=== PATIENT | male | born 1975 | race Caucasian/White ===

== ENCOUNTER → 2017-11-26 | Outpatient (CLI) | payer OTHER ==
[~2017-11-26] MED LIST: ACETAMINOPHEN-1 EAC1 PO; AMLODIPINE BESY10 MG PO; CLONAZEPAM 0.50.5 M1 PO; GABAPENTIN 100100 MG PO; HYDROCHLOROTH12.5 M1 PO; LABETALOL HCL100 MG PO; LIPITOR10 MG PO; METFORMIN HCL500 MG PO; PRINIVIL10 MG PO; SEROQUEL200 MG PO; TRAMADOL 50 MG50 MG PO; VENLAFAXINE HCL75 M2 PO; ZOFRAN ODT4 MG PO
[2017-11-26 10:52] LABS: HEMATOCRIT 39.2 % (42.0-52.0); HEMOGLOBIN 13.2 gm/dL (14.0-18.0); MCH 31.1 pg (26.0-34.0); MCHC 33.7 g/dL (28.0-37.0); MCV 92.4 fL (80.0-100.0); MPV 6.7 fl. (7.2-11.1); NUCLEATED RBCS 0 /100WBC; PLATELET COUNT* 444 thou/uL (150-400); RBC 4.24 mil/uL (4.50-6.00); RDW-CV 12.9 % (10.5-14.5); WBC 10.9 thou/uL (4.0-11.0)
[2017-11-26 11:25] LABS: % SATURATION 38 % (20-39); IRON 140 ug/dL (50-175)
[2017-11-26 12:10] LABS: ABSOLUTE EOSINOPHILS 0.2 thou/uL (0.0-0.7); ABSOLUTE LYMPHOCYTES 3.5 thou/uL (0.8-5.3); ABSOLUTE MONOCYTES 1.2 thou/uL (0.0-1.2); METAMYELOCYTES 1 %
[2017-11-26 12:11] LABS: LARGE PLATELETS RARE; PLATELET ESTIMATE INCREASED
[2017-11-26 12:12] LABS: MICROCYTES Occasional
[2017-11-26 12:16] LABS: ESR (SEDRATE) 2 mm/hr (0-15)
[2017-11-26 21:10] LABS: HEMOGLOBIN 12.9 g/dL (13.0-17.7)
[2017-11-26 21:16] LABS: ALBUMIN 4.3 g/dL (3.4-5.0); CALCIUM 9.4 mg/dL (8.5-10.1); CREATININE 0.7 mg/dL (0.6-1.3); POTASSIUM 4.1 mmol/L (3.5-5.1); TOTAL BILIRUBIN 0.6 mg/dL (<0.1-1.0); TOTAL PROTEIN 7.3 g/dL (6.4-8.2)
--- NOTE | 2017-12-06 14:19 | HEMONC ---
[address] [address] HEMATOLOGY ONCOLOGY NOTE Name: MIA ROWE Room: [facility]#: [id number] Admission: 11/26/17 Attend Phys: Becky Johnson MD Discharge: Date of : 77 Report #: [id number] THIS REPORT FOR: //name// CC: Becky Oreilly HEMATOLOGY-ONCOLOGY CLINIC NOTE REFERRING PHYSICIAN: Nuria Oreilly NP. REASON FOR CONSULTATION: Leukocytosis and thrombocythemia. SUBJECTIVE: A 42-year-old male with multiple medical conditions, who has been evaluated because of leukocytosis. He had blood work done on 08/15/2017, which showed WBC 12.3, hemoglobin 13.4. In addition to that, platelet count was 485,000. I reviewed his previous CBC back in 07/2017, which showed persistent elevation of his platelet count around 400,000. The patient reported symptoms of lightheadedness discomfort and he has been trying to lose weight by cutting down his sugar. The patient was told he had a fatty liver back when he was 19 years old. The patient denies any recent surgery or frequent infections. REVIEW OF SYSTEMS: All systems reviewed. It was negative, except the above. PAST MEDICAL HISTORY: Dyslipidemia, diabetes mellitus, sleep apnea, GERD, arthritis and fatty liver. MEDICATION ALLERGIES: No known allergies. MEDICATIONS: Atorvastatin 10 mg p.o. daily, gabapentin 100 mg 3 times a day, hydrochlorothiazide 12.5 mg p.o. daily, labetalol 100 mg p.o. 2 tabs daily, lisinopril 20 mg p.o. daily, metformin 500 mg p.o. 3 times a day, pantoprazole 40 mg p.o. twice a day, venlafaxine 75 mg p.o. daily and clonazepam as needed. SOCIAL HISTORY: He is an active smoker. He started smoking at the age of 19, two packs a day. He drinks alcohol occasionally. PHYSICAL EXAMINATION: VITAL SIGNS: Today, blood pressure is 156/90, pulse is 83, respirations 22, temperature is 98.1 and pulse is 97% on room air. GENERAL: The patient was sitting in a chair. He was not in acute distress. LUNGS: Clear to auscultation bilaterally. HEART: Regular rate and rhythm. S1, S2 within normal limits. ABDOMEN: Soft, nontender and nondistended. Bowel sounds positive. EXTREMITIES: No edema, no cyanosis, [place] [address] HEMATOLOGY ONCOLOGY NOTE Name: MIA ROWE Room: [facility]#: [id number] Admission: 11/26/17 Attend Phys: Becky Johnson MD Discharge: Date of : 77 Report #: [id number] ASSESSMENT AND PLAN: A 42-year-old male was evaluated because of leukocytosis and persistent thrombocythemia. The patient denies any recent surgery or symptom suggestive of iron-deficiency anemia. The patient does not have any frequent infection to explain his symptoms. In addition to that, he reported lightheadedness and weight loss recently. RECOMMENDATIONS: I would like to obtain a workup for myeloproliferative neoplasm, including a BCR-ABL, JAK2 mutation, MPL and calreticulin mutation. We will proceed with a bone marrow biopsy. Other differential diagnosis to explain his thrombocytopenia will be chronic liver injury due to fatty liver. We will follow up in 2 weeks. <ELECTRONICALLY SIGNED> By: Becky Johnson MD 12/06/17 1419 1001 [id number] Johnson MD /nt
== END ==
LOC: M.RTH 05:01
PROVIDERS: Internal Medicine
DX: D72.829 Elevated white blood cell count, unspecified (principal); D47.3 Essential (hemorrhagic) thrombocythemia; E78.5 Hyperlipidemia, unspecified; E11.9 Type 2 diabetes mellitus without complications; K21.9 Gastro-esophageal reflux disease without esophagitis; M19.90 Unspecified osteoarthritis, unspecified site

== ENCOUNTER → 2017-12-02 | Outpatient (CLI) | payer OTHER ==
[~2017-12-02] VITALS: Ht 175.3 cm; Wt 104.3 kg
[2017-12-02 08:42] VITALS: BP 147/94
[2017-12-02 09:01] LABS: HEMATOCRIT 44.3 % (42.0-52.0); MCH 31.2 pg (26.0-34.0); MCHC 33.8 g/dL (28.0-37.0); MCV 92.2 fL (80.0-100.0); MPV 7.2 fl. (7.2-11.1); NUCLEATED RBCS 0 /100WBC; PLATELET COUNT* 481 thou/uL (150-400); WBC 11.9 thou/uL (4.0-11.0)
[2017-12-02 09:08] LABS: CALCIUM 9.4 mg/dL (8.5-10.1); CREATININE 0.7 mg/dL (0.6-1.3); POTASSIUM 4.3 mmol/L (3.5-5.1)
[2017-12-02 09:10] LABS: APTT 26.4 Seconds (25.0-31.3)
[2017-12-02 09:13] LABS: ALBUMIN 4.6 g/dL (3.4-5.0); TOTAL BILIRUBIN 0.4 mg/dL (<0.1-1.0); TOTAL PROTEIN 8.4 g/dL (6.4-8.2)
[2017-12-02 09:44] LABS: ABSOLUTE BASOPHILS 0.1 thou/uL (0.0-0.2); ABSOLUTE EOSINOPHILS 0.8 thou/uL (0.0-0.7); ABSOLUTE LYMPHOCYTES 3.7 thou/uL (0.8-5.3); ABSOLUTE MONOCYTES 0.7 thou/uL (0.0-1.2); ABSOLUTE NEUTROPHILS 6.5 thou/uL (1.6-8.1); ATYPICAL LYMPHS 3 %; METAMYELOCYTES 1 %; PLATELET ESTIMATE ADEQUATE
[2017-12-02 10:13] VITALS: BP 147/79
[2017-12-02 10:41] VITALS: BP 139/74
--- NOTE | 2017-12-06 09:09 | PATH ---
[address] [address] PATHOLOGY RPT PROCEDURE Name: MIA RODRIGUEZ Room: [facility] NINO Dyson#: [id number] Admission: 12/02/17 Date of : 77 Discharge: Report #: [id number] Path Case #: [id number] LCA Accession Number: [id number] . 01 Material submitted: . PART A: BONE MARROW BX PART B: BONE MARROW CLOT PART C: BONE MARROW ASP PART D: PERIPHERAL SMEARS PART E: BONE MARROW FLOW . 01 Clinical history: . 42 year old man with leukocytosis and thrombocytosis. . 02 Diagnosis: Bone marrow aspirate, biopsy, cell clot and peripheral blood: - Peripheral blood with mild leukocytosis with mildly left shifted granulocytes and mild thrombocytosis. - Normocellular bone marrow with trilineage hematopoiesis, mild (no significant) dyspoiesis, scattered histiocytes and no evidence of lymphoma or acute leukemia (see comment). LBQ/12/04/2017 . 02 Comment: Overall, the bone marrow is normocellular for the patient's age with trilineage hematopoiesis, mild (no significant) dyspoiesis, scattered histiocytes and no evidence of lymphoma or acute leukemia. The bone marrow has an overall mildly reactive appearance. The dyspoiesis does not meet the morphologic criteria for myelodysplasia. Correlation with clinical history, additional laboratory data and cytogenetics is recommended. (CLW/db; 12/04/2017) . 02 Electronically signed: . Danni De Anda MD, Pathologist NPI- [id number] . 01 Gross description: . A. The specimen is received in formalin, labeled "Mia Rodriguez, bone marrow biopsy" and consists of a bone core measuring 1.0 cm in length and 0.2 cm in diameter which is entirely submitted in A1 following decalcification. . B. The specimen is received in formalin, labeled "Mia Rodriguez, clot" and consists of blood clot measuring 2.5 x 1.2 x 0.3 cm which is entirely submitted in B1. (SDY; 12/02/2017) [place] [address] PATHOLOGY RPT PROCEDURE Name: MIA RODRIGUEZ Room: [facility] NINO Dyson#: [id number] Admission: 12/02/17 Date of : 77 Discharge: Report #: [id number] Path Case #: [id number] . 02 Microscopic: . CBC Data (12/02/17): WBC 11,900 /uL, RBC 4.80 hemoglobin 15.0 g/dL, hematocrit 44.3%, MCV 92.2 fL, MCH 31.2 pg, MCHC 33.8 g/dL, RDW 13.0%, and platelet count 481,000 per uL. White blood cell differential: segs 54%, lymphs 28%, monos 6%, eos 7%, basos 1%, metas 1% and atypical lymphs 3%. . Peripheral Blood Smear: Cytomorphological examination of the Olivarez's stained peripheral blood smear confirms the provided data. Red blood cells are normocytic and are without significant anisopoikilocytosis. White blood cells are mildly increased in number. They are predominantly segmented neutrophils without significant dyspoiesis or a significant left shift. A rare metamyelocyte is noted on scanning. No blasts or Bill rods are seen. Lymphocytes are predominantly small, round, and mature appearing with condensed chromatin and scant cytoplasm with admixed large granular lymphocytes and reactive appearing lymphocytes. On scanning, no markedly atypical lymphoid cells are seen. Monocytes are mature. Platelets are adequate (mildly increased) in number and mainly normal in morphology with rare larger platelets noted. . Aspirate Smears: Cytomorphological examination of the Olivarez's stained aspirate smear shows spicules present. The overall cellularity is approximately 50%. The myeloid to erythroid ratio is 2:1. Full myeloid maturation is identified and is without significant dyspoiesis. Erythroid maturation is mildly dyserythropoietic with irregular nuclear contours and mitotic figures. In a 500 cell differential, there are 1% blasts (no Bill rods are seen), 53% more differentiated myeloids, 30% erythroid precursors, 15% lymphocytes and 1% plasma cells. Megakaryocytes are proportional in number and both normal and abnormal in morphology with variable sizes and nuclear abnormalities. No lymphoid aggregates or markedly atypical lymphoid cells are seen. Plasma cells are without atypia. Iron stain of the aspirate smear shows trace stainable iron with spicules present. No ringed sideroblasts are identified. . Core Biopsy and Cell Clot: The decalcified bone marrow core biopsy is adequate. The bone marrow is normocellular with an overall cellularity of approximately 60%. The myeloid to erythroid ratio is 2:1. Myeloid maturation is without significant dyspoiesis. Erythroid maturation is mildly dyserythropoietic. Megakaryocytes are normal in number and both normal and abnormal in morphology. No lymphoid aggregates or markedly atypical lymphoid cells are seen. Scattered histiocytes are noted. Bony trabeculae and blood vessels are unremarkable. The cell clot is predominantly blood and peripheral blood elements. . Properly controlled special stains [place] [address] PATHOLOGY RPT PROCEDURE Name: JAEMIA Mayberry Room: [facility]#: [id number] Admission: 12/02/17 Date of : 77 Discharge: Report #: [id number] Path Case #: [id number] Block A1 Iron - 1/4+ iron positivity Reticulin - No significant reticulin fibrosis . Block B1 Iron - 0/4+ iron positivity (predominantly blood and peripheral blood elements) . Flow Cytometry: Flow cytometric immunophenotypic analysis was performed at [facility]. The diagnosis is "no diagnostic immunophenotypic abnormalities detected." There are 15.1% lymphocytes. Of the lymphocytes, there are 67% T-cells with a CD4/CD8 ratio of 2.2 and no aberrant T-cell antigen expression and 26% polyclonal B-cells (kappa lambda ratio of 1.6). There are 2.4% CD34 positive cells (blasts) and 2.9% precursor B-cells. There are 0.2% plasma cells that are not increased and show unremarkable surface marker expression. No immunophenotypic evidence of a lymphoproliferative disorder, acute leukemia, increase in blasts, or increased plasma cells is identified. Please see separate flow cytometry report from [facility] ([id number]). . Cytogenetics: Cytogenetic chromosomal analysis is pending at [facility] ([id number]). . 02 Pathologist provided ICD-10: D72.829, D47.3 . 02 CPT . 260394, 468794, 077021, 388159, 754381, 285885, 691832, 313224, 554589 Specimen Comment: A courtesy copy of this report has been sent to Specimen Comment: [phone], , . Specimen Comment: Report sent to , and Specimen Comment: A duplicate report has been generated due to demographic updates. Performed at: 01 [facility] [address] [id number] MD Dionte Tsang MD Phone: [phone] Performed at: 02 [facility] [address] [id number] MD Miguel Palacios MD Phone: [phone]
== END | disposition home or self-care (01) ==
LOC: M.ULTRA 08:00
PROVIDERS: Radiology Diagnostic Radiology
DX: D72.829 Elevated white blood cell count, unspecified (principal); D47.3 Essential (hemorrhagic) thrombocythemia; G62.9 Polyneuropathy, unspecified; Z79.01 Long term (current) use of anticoagulants; Z98.890 Other specified postprocedural states; Z79.899 Other long term (current) drug therapy; Z79.891 Long term (current) use of opiate analgesic

== ENCOUNTER → 2017-12-10 | Outpatient (CLI) | payer OTHER ==
--- NOTE | 2017-12-12 10:00 | HEMONC ---
[address] [address] HEMATOLOGY ONCOLOGY NOTE Name: MIA ROWE Room: [facility]#: [id number] Admission: 12/10/17 Attend Phys: Becky Johnson MD Discharge: Date of : 77 Report #: [id number] THIS REPORT FOR: //name// CC: Becky Oreilly NP DATE OF SERVICE: 12/10/2017 DIAGNOSIS: Reactive thrombocythemia. SUBJECTIVE: The patient presented today for follow up on his workup. I obtained a JAK2 mutation, MPL, which came back all negative. In addition to that, I obtained a bone marrow biopsy, which showed normal cellular with a trilineage hematopoiesis. There is mild dyspoiesis, scattered histiocytes. No evidence of lymphoma or leukemia. His peripheral blood smear showed mild leukocytosis with a mildly left shifted granulocytic and mild thrombocytosis. Also, I obtained ESR, CRP, which came back negative. His iron profile also came back within normal range. Ultrasound of the abdomen showed mildly enlarged liver at 22.2. Otherwise, the patient continues to feel the same in terms of fatigue. REVIEW OF SYSTEMS: All systems review was negative except as above. MEDICATIONS: List has been reviewed. PHYSICAL EXAMINATION: VITAL SIGNS: Blood pressure is 148/87, pulse 67, respirations 20, temperature is 97.9, saturations 98% on room air. GENERAL: The patient was sitting in a chair, was not in acute distress. LUNGS: Clear to auscultation bilaterally. HEART: Regular rate and rhythm. S1, S2 within normal limits. ABDOMEN: Soft. ASSESSMENT AND PLAN: A 42-year-old male who was evaluated because of very mild leukocytosis and thrombocythemia, the etiology most likely is reactive. His myeloproliferative neoplasm workup came back negative. Bone marrow biopsy was negative. His peripheral blood smear showed very mild left shift. At this point, no further workup is needed. Recommend to check his CBC every 6 months. <ELECTRONICALLY SIGNED> By: Becky Johnson MD 12/12/17 1000 1025 [id number] Johnson MD /nt
== END ==
LOC: M.RTH 04:44
DX: D47.3 Essential (hemorrhagic) thrombocythemia (principal)

== ENCOUNTER 2018-06-10 08:48 | Emergency (ER) | payer OTHER ==
[~2018-06-10] VITALS: Ht 177.8 cm; Wt 110.2 kg
[2018-06-10] MEDS ORDERED: NEURONTIN 300300 M1 PO (09:02)
[2018-06-10 09:10] LABS: HEMATOCRIT 40.9 % (42.0-52.0); HEMOGLOBIN 13.9 gm/dL (14.0-18.0); MCH 30.9 pg (26.0-34.0); MCV 90.8 fL (80.0-100.0); MPV 7.1 fl. (7.2-11.1); NUCLEATED RBCS 0 /100WBC; PLATELET COUNT* 483 thou/uL (150-400); RBC 4.51 mil/uL (4.50-6.00); RDW-CV 12.9 % (10.5-14.5); WBC 12.9 thou/uL (4.0-11.0)
[2018-06-10 09:28] LABS: ANION GAP 14 mmol/L (7-16); BUN 17 mg/dL (7-18); CHLORIDE 103 mmol/L (98-107); CO2 24 mmol/L (21-32); CREATININE 0.8 mg/dL (0.6-1.3); GLUCOSE 164 mg/dL (70-99); POTASSIUM 4.4 mmol/L (3.5-5.1); SODIUM 141 mmol/L (136-145); TROPONIN-I LEVEL <0.06 ng/mL (<0.06)
[2018-06-10 09:31] LABS: INR 0.9; PROTIME 9.4 Seconds (9.20-11.50)
[2018-06-10 09:33] LABS: ABSOLUTE LYMPHOCYTES 4.9 thou/uL (0.8-5.3); ABSOLUTE MONOCYTES 0.8 thou/uL (0.0-1.2); ABSOLUTE NEUTROPHILS 7.2 thou/uL (1.6-8.1); ATYPICAL LYMPHS 2 %; METAMYELOCYTES 1 %; MYELOCYTES 1 %; PLATELET ESTIMATE ADEQUATE
[2018-06-10 09:34] LABS: ALBUMIN 4.3 g/dL (3.4-5.0); ALKALINE PHOSPHATASE 41 U/L (46-116); LIPASE 151 U/L (73-393); NT-PRO BRAIN NAT PEPTIDE < 5 pg/mL (<300); SGOT 22 U/L (15-37); SGPT 41 U/L (30-65); TOTAL BILIRUBIN 0.3 mg/dL (<0.1-1.0); TOTAL PROTEIN 8.2 g/dL (6.4-8.2)
--- NOTE | 2018-06-10 10:06 | EKG ---
[place] [address] ELECTROCARDIOGRAM REPORT Name: MIA ROWE Room: [facility]#: [id number] Admission: 06/10/18 Attend Phys: Discharge: Date of : 77 Report #: [id number] THIS REPORT FOR: //name// [facility] ED Test Date: 2018-06-10 Test Time: 08:52:25 Pat Name: MIA ROWE Department: Room: Gender: M Pathology Manager: LIZETT : 1975 Requested By: Maral Barber Order Number: [id number] MD: Donovan Johnson Measurements Intervals [place] Rate: 86 P: 50 RI: 161 QRS: 79 QRSD: 104 T: 53 QT: 359 QTc: 430 Interpretive Statements Sinus rhythm Baseline wander in lead(s) V2,V3 Compared to ECG 09/19/2016 22:01:06 No significant changes Electronically Signed On 06-10-2018 10:05:55 CDT by Donovan Johnson [email or web address] <ELECTRONICALLY SIGNED> By: Donovan Johnson MD, [facility] 06/10/18 1005 0852 0852 Donovan Johnson MD, [facility] /EPI
[2018-06-10] MEDS ORDERED: TORADOL 10 MG T10 MG PO (12:43)
[2018-06-10] MEDS ORDERED: ATIVAN0.5 M1 PO (12:43)
[2018-06-10 13:20] VITALS: BP 132/71
== END 2018-06-10 13:28 | disposition home or self-care (01) ==
LOC: M.ERS 08:48
PROVIDERS: Personal Emergency Response Attendant
DX: R07.2 Precordial pain (principal); F17.200 Nicotine dependence, unspecified, uncomplicated; I10 Essential (primary) hypertension; E11.43 Type 2 diabetes mellitus with diabetic autonomic (poly)neuropathy

== ENCOUNTER → 2018-06-11 | Outpatient (CLI) | payer OTHER ==
[~2018-06-11] MED LIST changes: +ATIVAN0.5 M1 PO; +NEURONTIN 300300 M1 PO; +TORADOL 10 MG T10 MG PO
== END ==
LOC: M.ULTRA 10:00
DX: K76.0 Fatty (change of) liver, not elsewhere classified (principal); R16.2 Hepatomegaly with splenomegaly, not elsewhere classified; I10 Essential (primary) hypertension; K21.9 Gastro-esophageal reflux disease without esophagitis; E66.9 Obesity, unspecified; E11.9 Type 2 diabetes mellitus without complications; F32.9 Major depressive disorder, single episode, unspecified; G47.33 Obstructive sleep apnea (adult) (pediatric); Z68.39 Body mass index [BMI] 39.0-39.9, adult; Z87.891 Personal history of nicotine dependence; Z79.899 Other long term (current) drug therapy

== ENCOUNTER → 2018-06-18 | Outpatient (CLI) | payer OTHER ==
--- NOTE | 2018-06-18 14:07 | 2DMMODE ---
[place] [address] 2 D/M-MODE ECHOCARDIOGRAM Name: MIA ROWE Room: [facility]#: [id number] Admission: 06/18/18 Attend Phys: Nuria CHAPA Oreilly Discharge: Date of : 77 Date of Service: 06/18/18 1407 Report #: [id number] THIS REPORT FOR: //name// APPROVED REPORT Study performed: 06/18/2018 08:15:39 EXAM: Comprehensive 2D, Doppler, and color-flow Echocardiogram Patient Location: Out-Patient BSA: 2.30 HR: 87 bpm BP: 140/82 mmHg Other Information Study Quality: Good Indications Chest Pain 2D Dimensions IVSd: 13.18 (7-11mm) LVOT Diam: 21.86 (18-24mm) LVDd: 53.89 mm PWd: 10.64 (7-11mm) Ascending Ao: 29.82 (22-36mm) LVDs: 34.52 (25-40mm) Aortic Root: 34.65 mm Volumes Left Atrial Volume (Systole) LA ESV Index: 15.20 mL/m2 Aortic Valve AoV Peak Dwight.: 1.45 m/s AO Peak Gr.: 8.46 mmHg LVOT Max P.77 mmHg AO Mean Gr.: 4.71 mmHg LVOT Mean P.48 mmHg LVOT Max V: 1.09 m/s AO V2 VTI: 21.81 cm LVOT Mean V: 0.73 m/s KENDRICK (VTI): 2.87 cm2 LVOT V1 VTI: 16.70 cm Mitral Valve E/A Ratio: 0.89 MV Decel. Time: 273.50 ms MV E Max Dwight.: 0.73 m/s MV PHT: 79.31 ms MVA (PHT): 2.77 [place] [address] 2 D/M-MODE ECHOCARDIOGRAM Name: MIA ROWE Room: [facility]#: [id number] Admission: 06/18/18 Attend Phys: Nuria CHAPA Oreilly Discharge: Date of : 77 Date of Service: 06/18/18 1407 Report #: [id number] TDI E/Lateral E': 5.21 E/Medial E': 8.11 Medial E' Dwight.: 0.09 m/s Lateral E' Dwight.: 0.14 m/s Pulmonary Valve PV Peak Dwight.: 1.25 m/s PV Peak Gr.: 6.22 mmHg Left Ventricle The left ventricle is normal size. There is normal LV segmental wall motion. There is normal left ventricular wall thickness. Left ventricular systolic function is normal. The left ventricular ejection fraction is within the normal range. LVEF is 55-60%. Grade I - abnormal relaxation pattern. Right Ventricle The right ventricle is normal size. The right ventricular systolic function is normal. Atria The left atrium size is normal. The right atrium size is normal. Aortic Valve The aortic valve is normal in structure. No aortic regurgitation is present. There is no aortic valvular stenosis. Mitral Valve The mitral valve is normal in structure. There is no mitral valve regurgitation noted. No evidence of mitral valve stenosis. Tricuspid Valve The tricuspid valve is normal in structure. There is no tricuspid valve regurgitation noted. Pulmonic Valve The pulmonary valve is normal in structure. There is no pulmonic valvular regurgitation. Great Vessels The aortic root is normal in size. IVC is normal in size and collapses >50% with inspiration. Pericardium There is [place] [address] 2 D/M-MODE ECHOCARDIOGRAM Name: MIA ROWE Jefe Room: [facility]#: [id number] Admission: 06/18/18 Attend Phys: Nuria CHAPA Oreilly Discharge: Date of : 77 Date of Service: 06/18/18 1407 Report #: [id number] <Conclusion> The left ventricle is normal size. There is normal left ventricular wall thickness. Left ventricular systolic function is normal. The left ventricular ejection fraction is within the normal range. LVEF is 55-60%. Grade I - abnormal relaxation pattern. The right ventricle is normal size. The left atrium size is normal. The aortic valve is normal in structure. The mitral valve is normal in structure. The tricuspid valve is normal in structure. IVC is normal in size and collapses >50% with inspiration. There is no pericardial effusion. There is normal LV segmental wall motion. <ELECTRONICALLY SIGNED> By: Madhav Tapia MD, [facility] 06/18/18 1407 140 140 Madhav Tapia MD, [facility] /INF
== END ==
LOC: M.CRD 08:00 → M.CT 09:00
DX: R91.1 Solitary pulmonary nodule (principal); K21.9 Gastro-esophageal reflux disease without esophagitis; K76.0 Fatty (change of) liver, not elsewhere classified; E66.9 Obesity, unspecified; E11.9 Type 2 diabetes mellitus without complications; I10 Essential (primary) hypertension; Z68.39 Body mass index [BMI] 39.0-39.9, adult

== ENCOUNTER → 2018-07-11 | Outpatient (CLI) | payer OTHER | LOC: M.CT 07:57 | DX: E27.9 Disorder of adrenal gland, unspecified (principal) ==

== ENCOUNTER → 2018-07-17 | Outpatient (CLI) | payer OTHER | LOC: M.NUC 07:45 | DX: R93.5 Abnormal findings on diagnostic imaging of other abdominal regions, including retroperitoneum (principal); R10.10 Upper abdominal pain, unspecified; I10 Essential (primary) hypertension; E11.9 Type 2 diabetes mellitus without complications; F32.9 Major depressive disorder, single episode, unspecified; G47.33 Obstructive sleep apnea (adult) (pediatric); F17.200 Nicotine dependence, unspecified, uncomplicated; K21.9 Gastro-esophageal reflux disease without esophagitis; E66.9 Obesity, unspecified; Z68.38 Body mass index [BMI] 38.0-38.9, adult ==

== ENCOUNTER 2019-09-22 19:23 | Inpatient (IN) | payer OTHER ==
[~2019-09-22] VITALS: Ht 175.3 cm; Wt 118.8 kg
[~2019-09-22 19:23] MED LIST changes: -NEURONTIN 300300 M1 PO; +NEURONTIN 300M300 M2 PO
[2019-09-22 19:35] VITALS: BP 144/95
[2019-09-22 20:10] LABS: HEMATOCRIT 41.6 % (42.0-52.0); HEMOGLOBIN 14.7 gm/dL (14.0-18.0); MCH 32.1 pg (26.0-34.0); MCHC 35.4 g/dL (28.0-37.0); MCV 90.7 fL (80.0-100.0); MPV 7.1 fl. (7.2-11.1); NUCLEATED RBCS 0 /100WBC; PLATELET COUNT* 482 thou/uL (150-400); RBC 4.58 mil/uL (4.50-6.00); RDW-CV 12.8 % (10.5-14.5); WBC 14.4 thou/uL (4.0-11.0)
[2019-09-22 20:22] LABS: CALCIUM 9.4 mg/dL (8.5-10.1); CREATININE 1.2 mg/dL (0.6-1.3); POTASSIUM 3.5 mmol/L (3.5-5.1)
[2019-09-22 20:25] LABS: INR 0.9; PROTIME 9.5 Seconds (9.20-11.50)
[2019-09-22 20:33] LABS: ALBUMIN 3.9 g/dL (3.4-5.0); TOTAL BILIRUBIN 0.3 mg/dL (<0.1-1.0); TOTAL PROTEIN 8.1 g/dL (6.4-8.2)
[2019-09-22 20:49] LABS: BE 0.6 mmol/L (-2 to +3); PCO2 40.3 mmHg (35.0-45.0); PO2 69.5 mmHg (75.0-100.0); pH 7.414 (7.340-7.450)
[2019-09-22 21:01] LABS: ABSOLUTE EOSINOPHILS 0.1 thou/uL (0.0-0.7); ABSOLUTE LYMPHOCYTES 3.9 thou/uL (0.8-5.3); ABSOLUTE MONOCYTES 0.6 thou/uL (0.0-1.2); ABSOLUTE NEUTROPHILS 9.8 thou/uL (1.6-8.1); MYELOCYTES 1 %; PLATELET ESTIMATE INCREASED; PROMYELOCYTES 1 %
[2019-09-22 21:04] LABS: SGOT 50.4 U/L (15-37)
[2019-09-22 21:05] LABS: SGPT 74.4 U/L (30-65)
[2019-09-23 02:50] VITALS: BP 130/72
[2019-09-23 04:02] VITALS: BP 149/90
--- NOTE | 2019-09-23 05:54 | NUR ---
PATIENT ARRIVED ON UNIT AT APPROX 0300. ALERT AND ORIENTED TIMES FOUR. IN ISOLATION PENDING PCR. IV PATENT TO FLUSHES AND MED ADMINISTRATION. UP AD DEONTE. COMPLAINTS OF PAIN, CONTROLLED WITH IV MEDICATIONS. ON 2L VIA NC. STATES THAT HE HAS SLEEP APNEA, INFORMED PATIENT TO HAVE HIS BRING CPAP. PLANT MACHINIST AND HOURLY ROUNDING COMPLETED DOCUMENTED.
[2019-09-23 08:13] VITALS: BP 136/88
--- NOTE | 2019-09-23 10:41 | EKG ---
[place] [address] ELECTROCARDIOGRAM REPORT Name: MIA ROWE Room: [address] ADM IN M.R.#: [id number] Admission: 09/22/19 Attend Phys: Burt Felipe, Discharge: Date of : 77 Date of Service: 09/22/192001 Report #: [id number] THIS REPORT FOR: //name// [facility] ED Test Date: 2019-09-22 Test Time: 20:02:03 Pat Name: MIA ROWE Department: Room: [facility] Gender: M Coagulating Operator: JUN : 1975 Requested By: Amarilis Gallardo Order Number: [id number] MD: Mark Mo Measurements Intervals [place] Rate: 99 P: 48 [place]: 167 QRS: 83 QRSD: 104 T: 34 QT: 340 QTc: 437 Interpretive Statements Sinus rhythm Baseline wander in lead(s) II,III,aVF Compared to ECG 06/10/2018 08:52:25 No significant changes Electronically Signed On 09-23-2019 10:41:15 CDT by Mark Mo [email or web address] <ELECTRONICALLY SIGNED> By: Mark Mo MD, [facility] 09/23/19 1041 01 01 Mark Mo MD, [facility] /EPI
[2019-09-23 15:30] LABS: AMP/METHAMP Negative (Negative); BARBITURATES Negative (Negative); BENZODIAZEPINES Negative (Negative); COCAINE Negative (Negative); METHADONE Negative (Negative); OPIATES Negative (Negative); PCP Negative (Negative); THC Negative (Negative)
--- NOTE | 2019-09-23 16:52 | NUR ---
Pt is A&O. Resides at home with his . Independent and active. No DME. No hx of HH or SNF. Anticipate dc within the next 1-2 days. Following.
[2019-09-23 16:53] VITALS: BP 132/73
--- NOTE | 2019-09-23 18:48 | NUR ---
PT REMAINS ON ENHANCED PRECAUTIONS. UP AD DEONTE. IVF INFUSING.
[2019-09-23 21:00] VITALS: BP 126/94
[2019-09-24] VITALS: BP 123/83
[2019-09-24 04:00] VITALS: BP 143/83
[2019-09-24 04:47] LABS: ABSOLUTE BASOPHILS 0.1 thou/uL (0.0-0.2); ABSOLUTE EOSINOPHILS 0.5 thou/uL (0.0-0.7); ABSOLUTE LYMPHOCYTES 3.6 thou/uL (0.8-5.3); ABSOLUTE MONOCYTES 0.5 thou/uL (0.0-1.2); ABSOLUTE NEUTROPHILS 6.2 thou/uL (1.6-8.1); BASOPHILS 0.7 %; EOSINOPHILS 4.4 %; HEMATOCRIT 35.9 % (42.0-52.0); MCH 31.6 pg (26.0-34.0); MCHC 34.2 g/dL (28.0-37.0); MCV 92.4 fL (80.0-100.0); MPV 7.3 fl. (7.2-11.1); NUCLEATED RBCS 0 /100WBC; POLYS 56.9 %; RBC 3.89 mil/uL (4.50-6.00); RDW-CV 13.1 % (10.5-14.5); WBC 10.8 thou/uL (4.0-11.0)
[2019-09-24 04:59] LABS: HEMOGLOBIN 12.3 gm/dL (14.0-18.0); PLATELET COUNT* 391 thou/uL (150-400)
[2019-09-24 05:07] LABS: CALCIUM 8.1 mg/dL (8.5-10.1); CREATININE 0.8 mg/dL (0.6-1.3); POTASSIUM 3.8 mmol/L (3.5-5.1)
--- NOTE | 2019-09-24 05:23 | NUR ---
PATIENT PROGRESSING TOWARDS GOALS: BACK PAIN MANAGED WITH MEDICATION PER MAR AND RELAXATION. PATIENT REMAINS ON O2 AT 2L PER NC WITH SAT >92%. PATIENT STILL HAS NPC BUT NO RESPIRATORY DISTRESS NOTED. CALL LIGHT WITHIN REACH
[2019-09-24 08:00] VITALS: BP 141/75
[2019-09-24 09:16] LABS: BE -0.7 mmol/L (-2 to +3); PCO2 37.7 mmHg (35.0-45.0); PO2 101.7 mmHg (75.0-100.0); pH 7.414 (7.340-7.450)
--- NOTE | 2019-09-24 11:52 | NUR ---
Covid negative. Titrate off o2. Home at nv.
[2019-09-24 13:22] VITALS: BP 107/56
[2019-09-24 17:09] VITALS: BP 126/66
[2019-09-24 20:13] VITALS: BP 142/73
[2019-09-25] VITALS: BP 121/72
[2019-09-25 04:00] VITALS: BP 99/42
--- NOTE | 2019-09-25 05:10 | NUR ---
NO ACUTE CHANGES THROUGHOUT SHIFT. ALL ROUNDINGS COMPLETED, ALL NEEDS MET, FULL ASSESSMENT COMPLETED CHARTED. CALL LIGHT AND PERSONAL ITEMS IN REACH.
[2019-09-25 08:00] VITALS: BP 144/94
[2019-09-25] MEDS ORDERED: CEFDINIR300 MG PO (11:43)
[2019-09-25] MEDS ORDERED: PROAIR HFA8.5 GM INH (11:43)
[2019-09-25 12:22] VITALS: BP 117/74
[2019-09-25 15:35] VITALS: BP 117/74
--- NOTE | 2019-09-25 20:31 | NUR ---
PT. VSS, AOX4, DENIES PAIN, UP AD DEONTE. CALL LIGHT AND PERSONAL BELONGINGS PLACED WITHIN REACH. D/C ORDERS RECEIVED. D/C SUMMARY, MEDICATIONS, DIET AND ACTIVITY ORDERS EXPLAINED, AND PT VERBALIZED UNDERSTANDING. PT. LEFT WITH PERSONAL BELONGINGS VIA WC AND WHEELED TO ER ENTRANCE AND PICKED UP BY SPOUSE. PT IN STABLE CONDITION AND IN NO APPARENT DISTRESS AT TIME OF DISCHARGE.
== END 2019-09-25 16:16 | disposition home or self-care (01) | DRG 871 ==
LOC: M.ERS 19:23 → M.TBA-ER 21:59 → M.2W 21:59
PROVIDERS: Internal Medicine; Nurse Practitioner Family; ADMIT Internal Medicine; ATTEND Internal Medicine
DX: A41.9 Sepsis, unspecified organism (principal); J18.9 Pneumonia, unspecified organism; J96.01 Acute respiratory failure with hypoxia; I10 Essential (primary) hypertension; E11.40 Type 2 diabetes mellitus with diabetic neuropathy, unspecified; E11.65 Type 2 diabetes mellitus with hyperglycemia; F17.210 Nicotine dependence, cigarettes, uncomplicated; J20.9 Acute bronchitis, unspecified; E66.01 Morbid (severe) obesity due to excess calories; G47.33 Obstructive sleep apnea (adult) (pediatric); E86.0 Dehydration; F41.9 Anxiety disorder, unspecified; Z20.828 Contact with and (suspected) exposure to other viral communicable diseases; Z68.38 Body mass index [BMI] 38.0-38.9, adult

== ENCOUNTER → 2020-02-23 | Outpatient (CLI) | payer OTHER ==
[~2020-02-23] MED LIST changes: +CEFDINIR300 MG PO; +PROAIR HFA8.5 GM INH
== END ==
LOC: M.RAD 14:01
PROVIDERS: ATTEND Registered Nurse Diabetes Educator
DX: R06.02 Shortness of breath (principal)

== ENCOUNTER 2020-06-17 11:47 | Emergency (ER) | payer OTHER ==
[~2020-06-17] VITALS: Ht 175.3 cm; Wt 113.4 kg
[2020-06-17] MEDS ORDERED: LIPITOR 20 MG T20 M1 PO (11:54)
[2020-06-17] MEDS ORDERED: PEPCID AC20 MG PO (11:54)
[2020-06-17 13:16] LABS: ABSOLUTE BASOPHILS 0.1 thou/uL (0.0-0.2); ABSOLUTE EOSINOPHILS 0.6 thou/uL (0.0-0.7); ABSOLUTE LYMPHOCYTES 4.5 thou/uL (0.8-5.3); ABSOLUTE MONOCYTES 0.6 thou/uL (0.0-1.2); ABSOLUTE NEUTROPHILS 5.6 thou/uL (1.6-8.1); BASOPHILS 1.1 %; HEMOGLOBIN 12.7 gm/dL (14.0-18.0); LYMPHOCYTES 39.6 %; MCHC 33.5 g/dL (28.0-37.0); MCV 92.4 fL (80.0-100.0); MONOCYTES 5.3 %; MPV 6.9 fl. (7.2-11.1); NUCLEATED RBCS 0 /100WBC; PLATELET COUNT* 413 thou/uL (150-400); RBC 4.11 mil/uL (4.50-6.00); RDW-CV 12.8 % (10.5-14.5); WBC 11.4 thou/uL (4.0-11.0)
[2020-06-17 13:26] LABS: CALCIUM 9.1 mg/dL (8.5-10.1); CREATININE 0.9 mg/dL (0.6-1.3)
[2020-06-17 13:30] LABS: ALBUMIN 4.3 g/dL (3.4-5.0); TOTAL BILIRUBIN 0.6 mg/dL (<0.1-1.0); TOTAL PROTEIN 7.9 g/dL (6.4-8.2)
[2020-06-17] MEDS ORDERED: NORCO5 PO ×2 (15:45→15:57)
[2020-06-17] MEDS ORDERED: ONDANSETRON ODT4 MG PO ×2 (15:45→15:57)
[2020-06-17 16:15] VITALS: BP 133/86
--- NOTE | 2020-06-19 09:39 | EKG ---
[place] [address] ELECTROCARDIOGRAM REPORT Name: MIA ROWE Room: [facility]#: [id number] Admission: 06/17/20 Attend Phys: Discharge: 06/17/20 Date of : 77 Date of Service: 06/17/20 1611 Report #: [id number] THIS REPORT FOR: //name// [facility] ED Test Date: 2020-06-17 Test Time: 16:11:55 Pat Name: MIA ROWE Department: Room: Gender: Vehicle Calibration Engineer: HUSEYIN : 1975 Requested By: Ace Davila Order Number: [id number] MD: Mark Mo Measurements Intervals [place] Rate: 64 P: 37 [place]: 177 QRS: 73 QRSD: 118 T: 46 QT: 423 QTc: 437 Interpretive Statements Sinus rhythm Nonspecific intraventricular conduction delay Compared to ECG 09/22/2019 20:02:03 rate has slowed Electronically Signed On 06-19-2020 9:39:11 CDT by Mark Mo [email or web address] <ELECTRONICALLY SIGNED> By: Mark Mo MD, [facility] 06/19/20 0939 1611 161 Mark Mo MD, [facility] /EPI
== END 2020-06-17 16:15 | disposition home or self-care (01) ==
LOC: M.ERS 11:47
PROVIDERS: Physician Assistant
DX: R10.84 Generalized abdominal pain (principal); R10.32 Left lower quadrant pain; R11.2 Nausea with vomiting, unspecified; I10 Essential (primary) hypertension; E11.40 Type 2 diabetes mellitus with diabetic neuropathy, unspecified; G47.30 Sleep apnea, unspecified

== ENCOUNTER 2020-10-14 15:47 | Observation (INO) | payer OTHER ==
[~2020-10-14] VITALS: Ht 175.3 cm; Wt 116.1 kg
[~2020-10-14 15:47] MED LIST changes: +LIPITOR 20 MG T20 M1 PO; +NORCO5 PO; +ONDANSETRON ODT4 MG PO; +PEPCID AC20 MG PO
[2020-10-14 15:58] VITALS: BP 135/74
[2020-10-14] MEDS ORDERED: GLIPIZIDE 10 MG10 MG PO (16:02)
[2020-10-14 16:30] LABS: ABSOLUTE BASOPHILS 0.1 thou/uL (0.0-0.2); ABSOLUTE EOSINOPHILS 0.4 thou/uL (0.0-0.7); ABSOLUTE LYMPHOCYTES 3.6 thou/uL (0.8-5.3); ABSOLUTE MONOCYTES 0.7 thou/uL (0.0-1.2); ABSOLUTE NEUTROPHILS 6.8 thou/uL (1.6-8.1); BASOPHILS 1.2 %; EOSINOPHILS 3.1 %; HEMATOCRIT 33.5 % (42.0-52.0); HEMOGLOBIN 11.7 gm/dL (14.0-18.0); LYMPHOCYTES 30.9 %; MCH 31.8 pg (26.0-34.0); MCHC 34.9 g/dL (28.0-37.0); MCV 91.2 fL (80.0-100.0); MPV 6.6 fl. (7.2-11.1); NUCLEATED RBCS 0 /100WBC; PLATELET COUNT* 413 thou/uL (150-400); POLYS 58.8 %; RBC 3.68 mil/uL (4.50-6.00); RDW-CV 13.6 % (10.5-14.5); WBC 11.6 thou/uL (4.0-11.0)
[2020-10-14 16:37] LABS: CALCIUM 8.6 mg/dL (8.5-10.1); POTASSIUM 3.8 mmol/L (3.5-5.1)
[2020-10-14 16:47] LABS: ALBUMIN 4.2 g/dL (3.4-5.0); TOTAL BILIRUBIN 0.3 mg/dL (<0.1-1.0); TOTAL PROTEIN 7.4 g/dL (6.4-8.2)
--- NOTE | 2020-10-14 16:54 | EKG ---
[place] [address] ELECTROCARDIOGRAM REPORT Name: MIA ROWE Room: [facility]#: [id number] Admission: Attend Phys: Discharge: Date of : 77 Date of Service: 10/14/20 1633 Report #: [id number] THIS REPORT FOR: //name// [facility] ED Test Date: 2020-10-14 Test Time: 16:33:30 Pat Name: MIA VAUGHNINNIS Department: Room: Gender: Specifications Writer: : 1975 Requested By: Ace Davila Order Number: [id number] MD: aMrk Mo Measurements Intervals [place] Rate: 80 P: 39 [place]: 176 QRS: 64 QRSD: 106 T: 38 QT: 373 QTc: 431 Interpretive Statements Sinus rhythm Compared to ECG 06/17/2020 16:11:55 Intraventricular conduction delay no longer present Electronically Signed On 10-14-2020 16:54:06 CDT by Mark Mo [email or web address] <ELECTRONICALLY SIGNED> By: Mark Mo MD, [facility] 10/14/201653 32 163 Mark Mo MD, [facility] /EPI
[2020-10-14 17:52] LABS: URINE BILIRUBIN NEGATIVE (Negative); URINE BLOOD NEGATIVE (Negative); URINE CLARITY CLEAR; URINE COLOR YELLOW; URINE GLUCOSE-RANDOM NEGATIVE (Negative); URINE KETONES NEGATIVE (Negative); URINE LEUKOCYTES-REFLEX NEGATIVE (Negative); URINE NITRITE-REFLEX NEGATIVE (Negative); URINE PROTEIN NEGATIVE (Negative); URINE UROBILINOGEN 0.2 E.U./dl (0.2-1.0)
[2020-10-14 18:00] LABS: AMP/METHAMP Negative (Negative); BARBITURATES Negative (Negative); BENZODIAZEPINES Negative (Negative); COCAINE Negative (Negative); METHADONE Negative (Negative); OPIATES Negative (Negative); PCP Negative (Negative); THC POSITIVE (Negative)
[2020-10-14 20:00] VITALS: BP 145/88
[2020-10-14 20:05] VITALS: BP 159/89
[2020-10-15 05:18] LABS: HEMATOCRIT 33.8 % (42.0-52.0); HEMOGLOBIN 11.3 gm/dL (14.0-18.0); MCH 30.9 pg (26.0-34.0); MCHC 33.4 g/dL (28.0-37.0); MCV 92.6 fL (80.0-100.0); MPV 7.1 fl. (7.2-11.1); RBC 3.65 mil/uL (4.50-6.00); RDW-CV 13.6 % (10.5-14.5); WBC 9.5 thou/uL (4.0-11.0)
[2020-10-15 05:45] LABS: CALCIUM 7.7 mg/dL (8.5-10.1); POTASSIUM 3.9 mmol/L (3.5-5.1)
[2020-10-15 08:00] VITALS: BP 148/84
[2020-10-15 14:37] VITALS: BP 159/89
[2020-10-15 17:07] VITALS: BP 159/89
--- NOTE | 2020-10-15 17:08 | NUR ---
1530: PATIENT DISCHARGED AT THIS TIME VIA WHEELCHAIR ACCOMPANIED BY THIS RN AND TO PRIVATE VEHICLE. IV DC'D, COTTON AND TAPE TO SITE. DISCHARGE INSTRUCTIONS REVIEWED, ACKNOWLEDGE UNDERSTANDING. ALL QUESTIONS AND CONCERNS ADDRESSED.
== END 2020-10-15 17:30 | disposition home or self-care (01) ==
LOC: M.ERS 15:47 → M.TBA-ER 17:01 → M.2W 20:33
PROVIDERS: Physician Assistant; ADMIT Family Medicine; ATTEND Family Medicine
DX: E11.649 Type 2 diabetes mellitus with hypoglycemia without coma (principal); G93.41 Metabolic encephalopathy; E78.5 Hyperlipidemia, unspecified; E66.9 Obesity, unspecified; F95.2 Tourette's disorder; I10 Essential (primary) hypertension; Z79.82 Long term (current) use of aspirin; G47.00 Insomnia, unspecified; F17.210 Nicotine dependence, cigarettes, uncomplicated; Z79.899 Other long term (current) drug therapy